=== PATIENT | female | born 2000 | race Caucasian/White ===

== ENCOUNTER 2021-09-07 09:54 | Outpatient (REF) | payer OTHER, SELFPAY ==
[2021-09-07 10:44] LABS: Binax Internal Control QC Valid; Binax Lot number: 9864; Binax Now Covid-19 Ag Positive (Negative)
== END 2021-09-07 09:55 | disposition home or self-care (01) ==
LOC: HO.LAB 09:54
PROVIDERS: Visit Provider Internal Medicine
DX: Z20.822 Contact with and (suspected) exposure to COVID-19 (principal)
CPT/HCPCS: 36415; C9803